=== PATIENT | male | born 1995 | race Caucasian/White ===

== ENCOUNTER 2018-11-29 19:15 | Emergency (ER) | payer OTHER, SELFPAY ==
[2018-11-29 19:16] VITALS: BP 121/87; PULSE 70; RESP 15; TEMP 37.1; BMI 29.2
--- NOTE | 2018-11-29 22:22 | ED.VIS.GEN ---
History of Present Illness Chief Complaint: Wound Informant: Patient Onset: Days - 2-3 Context: Gradual Onset Timing: Continuous Quality: sore and red Location: bilat lower anterior legs Current Severity: Moderate Maximum Severity: Moderate Worsened by: palpation, walking Relieved by: nothing except rest Associated Symptoms: a cold x 2 days approx Narrative: Patient has spontaneous appearance gradually of raised red areas on his legs that are sore. Denies any abdominal pain. No neurologic symptoms. He said he he did start with a cough and runny nose with congestion around the same time or just afterwards. No fevers that he knows of. No dyspnea. He is healthy otherwise. No prescriptions currently and no [id number] medications taken. Past Medical History - Allergies and Home Meds Allergies/Adverse Reactions: Allergies No Known Allergies Allergy (Verified 11/29/18 19:16) Primary Care Physician: Zak Lua DO [Primary Care Provider] - 3-5 Days Lives: With Family Smoking Status: Never smoker Review of Systems All systems negative except as indicated General: Denies: Chills, Fever, Malaise, Sweats Eyes: Denies: Visual changes - bilaterally, Diplopia ENT: Reports: Rhinorrhea, Sore throat - Mild. Denies: Bilateral ear pain Cardiovascular: Denies: Chest pain, Palpitations Respiratory: Reports: Cough. Denies: Dyspnea, Sputum, Dyspnea on exertion Gastrointestinal: Denies: Abdominal pain, Nausea, Vomiting, Diarrhea, Melena, Hematochezia Genitourinary: Denies: Dysuria, Hematuria, Frequency Musculoskeletal: Reports: Extremity Pain. Denies: Neck pain, Back pain, Swelling Skin: Reports: - - Lower leg lesions. See HPI.. Denies: Rash Neurological: Denies: Headache, Weakness, Numbness Psych: Denies: Depression, Anxiety Endocrine: Denies: Polyuria, Polydipsia Hematologic: Denies: Easy bruising, Easy bleeding Allergy: Denies: Swelling of the mouth, Swelling of the tongue Physical Exam Vital Signs/Narrative: Vital Signs Temp Pulse Resp BP 11/29/18 19:16 98.7 F 70 15 121/87 H Inital Vital Signs reviewed: Yes General: Well nourished, Well developed Head: Normocephalic, Atraumatic Eyes: Perrl, EOMI ENT: Moist mucous membranes, No rhinorrhea, TM's clear, - - Posterior oropharynx clear. No oral pharyngeal mucosal lesions or abnormalities.. Negative for: Sinus tenderness Neck: Supple, Nontender, No lymphadenopathy Cardiovascular: Regular rate, Regular rhythm, No murmurs, Normal S1, Normal S2. Negative for: Tachycardia Respiratory: No distress, CTA bilaterally, Chest nontender Abdomen: Soft, Nontender, Nondistended, Normal bowel sounds Back: Nontender, Normal Inspection Extremities: No edema, Tenderness - At erythematous nodules. Full range of motion throughout all joints, with no effusion or joint involvement. Skin: Normal color, Rash - Large slightly raised tender erythematous nodular areas. On both legs, a couple more on the right than the left where there is only 2. No abscesses or fluctuance. No lymphangitis. 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 Given his cold symptoms concurrent with these skin/lower extremity findings, I suspect possible mycoplasma infection. Therefore we will treat his URI with a Z-Floyd and follow-up with physician. No history of or known exposure to tuberculosis. No recent travel away from the area or out of the country. No known history of cancer. Encouraged follow-up to ensure resolution of his erythema nodosum. Discussed at length with him and father and they are comfortable with this plan. ED Disposition - Plan for ED Patient: Disposition: Home or Assisted Living Chief Complaint: Wound Diagnosis: Upper respiratory infection, Erythema nodosum Instructions: Walking Pneumonia Prescriptions: RX: Azithromycin [Zithromax Z-Floyd] 250 mg PO UD #1 box Referrals: Zak Lua DO [Primary Care Provider] - 3-5 Days
--- NOTE | 2018-11-29 22:26 | ED.DCSUM_ITS ---
History of Present Illness Chief Complaint: Wound Informant: Patient Onset: Days - 2-3 Context: Gradual Onset Timing: Continuous Quality: sore and red Location: bilat lower anterior legs Current Severity: Moderate Maximum Severity: Moderate Worsened by: palpation, walking Relieved by: nothing except rest Associated Symptoms: a cold x 2 days approx Narrative: Patient has spontaneous appearance gradually of raised red areas on his legs that are sore. Denies any abdominal pain. No neurologic symptoms. He said he he did start with a cough and runny nose with congestion around the same time or just afterwards. No fevers that he knows of. No dyspnea. He is healthy otherwise. No prescriptions currently and no [id number] medications taken. Past Medical History - Allergies and Home Meds Allergies/Adverse Reactions: Allergies No Known Allergies Allergy (Verified 11/29/18 19:16) Primary Care Physician: aZk Lua DO [Primary Care Provider] - 3-5 Days Lives: With Family Smoking Status: Never smoker Review of Systems All systems negative except as indicated General: Denies: Chills, Fever, Malaise, Sweats Eyes: Denies: Visual changes - bilaterally, Diplopia ENT: Reports: Rhinorrhea, Sore throat - Mild. Denies: Bilateral ear pain Cardiovascular: Denies: Chest pain, Palpitations Respiratory: Reports: Cough. Denies: Dyspnea, Sputum, Dyspnea on exertion Gastrointestinal: Denies: Abdominal pain, Nausea, Vomiting, Diarrhea, Melena, Hematochezia Genitourinary: Denies: Dysuria, Hematuria, Frequency Musculoskeletal: Reports: Extremity Pain. Denies: Neck pain, Back pain, Swelling Skin: Reports: - - Lower leg lesions. See HPI.. Denies: Rash Neurological: Denies: Headache, Weakness, Numbness Psych: Denies: Depression, Anxiety Endocrine: Denies: Polyuria, Polydipsia Hematologic: Denies: Easy bruising, Easy bleeding Allergy: Denies: Swelling of the mouth, Swelling of the tongue Physical Exam Vital Signs/Narrative: Vital Signs Temp Pulse Resp BP 11/29/18 19:16 98.7 F 70 15 121/87 H Inital Vital Signs reviewed: Yes General: Well nourished, Well developed Head: Normocephalic, Atraumatic Eyes: Perrl, EOMI ENT: Moist mucous membranes, No rhinorrhea, TM's clear, - - Posterior oropharynx clear. No oral pharyngeal mucosal lesions or abnormalities.. Negative for: Sinus tenderness Neck: Supple, Nontender, No lymphadenopathy Cardiovascular: Regular rate, Regular rhythm, No murmurs, Normal S1, Normal S2. Negative for: Tachycardia Respiratory: No distress, CTA bilaterally, Chest nontender Abdomen: Soft, Nontender, Nondistended, Normal bowel sounds Back: Nontender, Normal Inspection Extremities: No edema, Tenderness - At erythematous nodules. Full range of motion throughout all joints, with no effusion or joint involvement. Skin: Normal color, Rash - Large slightly raised tender erythematous nodular areas. On both legs, a couple more on the right than the left where there is only 2. No abscesses or fluctuance. No lymphangitis. 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 Given his cold symptoms concurrent with these skin/lower extremity findings, I suspect possible mycoplasma infection. Therefore we will treat his URI with a Z-Floyd and follow- up with physician. No history of or known exposure to tuberculosis. No recent travel away from the area or out of the country. No known history of cancer. Encouraged follow-up to ensure resolution of his erythema nodosum. Discussed at length with him and father and they are comfortable with this plan. ED Disposition - Plan for ED Patient: Disposition: Home or Assisted Living Chief Complaint: Wound Diagnosis: Upper respiratory infection, Erythema nodosum Instructions: Walking Pneumonia Prescriptions: RX: Azithromycin [Zithromax Z-Floyd] 250 mg PO UD #1 box Referrals: Zak Lua DO [Primary Care Provider] - 3-5 Days
[2018-11-29 22:51] VITALS: BP 116/84; PULSE 60; RESP 16; O2SAT 96
== END 2018-11-29 22:53 | disposition home or self-care (01) ==
PROVIDERS: Emergency Provider Emergency Medicine; Family Provider Family Medicine; PCP Family Medicine
DX: J06.9 Acute upper respiratory infection, unspecified (principal); L52 Erythema nodosum
CPT/HCPCS: 99282